=== PATIENT | male | born 1930 | race Caucasian/White ===

== ENCOUNTER 2019-09-06 09:38 | Emergency (ER) | payer OTHER ==
[~2019-09-06] VITALS: Ht 167.6 cm; Wt 68.0 kg
[2019-09-06 09:43] VITALS: Ht 167.6 cm; Wt 68.0 kg
[2019-09-06 11:33] VITALS: BP 119/59
== END 2019-09-06 11:33 | disposition home or self-care (01) ==
LOC: ED 09:38
DX: H92.02 Otalgia, left ear (principal); I88.9 Nonspecific lymphadenitis, unspecified; E11.9 Type 2 diabetes mellitus without complications